=== PATIENT | female | born 1995 ===

== ENCOUNTER 2017-09-04 11:11 | Emergency (ER) | payer BC, MEDICAID ==
[2017-09-04 11:20] VITALS: BMI 19.7
[2017-09-04 11:24] VITALS: TEMP 97.8
--- NOTE | 2017-09-04 11:50 | ED PDOC ---
Arrival/HPI - General Chief Complaint: Female Genitourinary Time Seen by Provider: 09/04/17 11:23 Historian: Patient - History of Present Illness Narrative History of Present Illness (Text): 09/04/17 11:30 A 22 year old female, whose past medical history includes PCOS and RH, presents to the emergency department complaining of vaginal bleeding. Patient states she only noticed the bleeding today prior to arrival. Patient is currently 17 weeks and this is her first . Patient currently is taking penicillin and vitamins. Patient denies of any vaginal pain or any other complaints. COPY COORDINATOR: Dr. Padma Humphrey Time/Duration: Prior to Arrival Symptom Onset: Sudden Symptom Course: Unchanged Past Medical History - Provider Review Nursing Documentation Reviewed: Yes - Infectious Disease Hx of Infectious Diseases: None - Cardiac Hx Cardiac Disorders: Yes Other/Comment: RH - Pulmonary Hx Respiratory Disorders: No - Neurological Hx Neurological Disorder: No - HEENT Hx HEENT Disorder: No - Renal Hx Renal Disorder: No - Endocrine/Metabolic Hx Endocrine Disorders: No - Hematological/Oncological Hx Blood Disorders: No - Integumentary Hx Dermatological Disorder: No - Musculoskeletal/Rheumatological Hx Musculoskeletal Disorders: No - Gastrointestinal Hx Gastrointestinal Disorders: No - Genitourinary/Gynecological Hx Genitourinary Disorders: Yes Other/Comment: PCOS - Psychiatric Hx Psychophysiologic Disorder: No Hx Substance Use: No - Anesthesia Hx Anesthesia: No Family/Social History - Physician Review Nursing Documentation Reviewed: Yes Family/Social History: No Known Family HX Smoking Status: Never Smoked Hx Alcohol Use: Yes Frequency of alcohol use: Socially Hx Substance Use: No Allergies/Home Meds Allergies/Adverse Reactions: Allergies No Known Allergies Allergy (Verified 09/04/17 11:19) Home Medications: Home Meds Medication Instructions Recorded Confirmed Penicillin VK [Penicillin VK Tab] 250 mg PO BID 09/04/17 09/04/17 Vit No.126/Iron/Folic 1 tab PO DAILY 09/04/17 09/04/17 [Classic Tablet] Review of Systems - Physician Review All systems were reviewed & negative as marked: Yes - Review of Systems Gastrointestinal: absent: Abdominal Pain Genitourinary Female: Vaginal Bleeding. absent: Other (no vaginal pain) Physical Exam Vital Signs Reviewed: Yes Vital Signs Temp Pulse Resp BP Pulse Ox 09/04/17 14:15 119 H 17 125/80 99 09/04/17 13:11 115 H 18 127/80 99 09/04/17 11:23 97.8 F 117 H 18 128/82 98 Temperature: Afebrile Blood Pressure: Normal Pulse: Tachycardic Respiratory Rate: Normal Appearance: Positive for: Well-Appearing Pain Distress: None Mental Status: Positive for: Alert and Oriented X 3 - Systems Exam Head: Present: Atraumatic, Normocephalic Pupils: Present: PERRL Extroacular Muscles: Present: EOMI Conjunctiva: Present: Normal Mouth: Present: Moist Mucous Membranes Neck: Present: Normal Range of Motion Respiratory/Chest: Present: Clear to Auscultation, Good Air Exchange. No: Respiratory Distress, Accessory Muscle Use Cardiovascular: Present: Regular Rate and Rhythm, Normal S1, S2. No: Murmurs Abdomen: Present: Other (gravid) Back: Present: Normal Inspection Upper Extremity: Present: Normal Inspection. No: Cyanosis, Edema Lower Extremity: Present: Normal Inspection. No: Edema Neurological: Present: GCS=15, CN II-XII Intact, Speech Normal Skin: Present: Warm, Dry, Normal Color. No: Rashes Psychiatric: Present: Alert, Oriented x 3, Normal Insight, Normal Concentration Medical Decision Making ED Course and Treatment: r/o miscarriage, ectopic, 09/04/17 11:36 Impression: 22 year old female with vaginal bleeding. Physical exam shows abdomen gravid. Plan: -- Transvaginal Ultrasound -- Labs -- Urinalysis -- Reassess and disposition Progress Notes: 09/04/2017 13:41 Transvaginal Ultrasound FINDINGS: UTERUS: Gestational sac: Single live intrauterine fetus in variable presentation. Heart rate: 152 bpm. BPD: 35.8 mm corresponding to 17 weeks and 0 days of gestational age. HC: 140.9 mm corresponding to 17 weeks and 3 days of gestational age. AC: 115.0 mm corresponding to 17 weeks and 2 days of gestational age. FL: 24.0 mm corresponding to 17 weeks and 2 days of gestational age. age ( Ultrasound estimated): 17 weeks and 2 days Gracie-gestational hemorrhage: None. Date of delivery (Ultrasound estimated) : 02/10/2018 Placenta is posterior. CERVIX: Long and closed. No cervical abnormality seen. RIGHT OVARY: Measures 3.5 x 3.2 x 1.9 cm. No mass lesion. Normal flow. LEFT OVARY: Measures 3.8 x 3.6 x 2.4 cm. No solid mass. Normal flow. FREE FLUID: None. OTHER FINDINGS: None. IMPRESSION: Single live intrauterine fetus in variable presentation with mean gestational age of 17 weeks and 2 days. Placenta is posterior. The expected date of delivery by ultrasound is 02/10/2018. Please note this is at limited OB ultrasound performed in the emergency room and a follow-up dedicated anatomic survey is recommended. Dictator: Jeanna Trejo 09/04/17 15:23 abd sof tno ttp. iup confirmed. rh pos. ua neg. advise outpt f/u and return precautions - Lab Interpretations Lab Results: 09/04/17 11:55 09/04/17 11:55 Lab Results 09/04/17 13:00: Blood Type Confirm O POSITIVE 09/04/17 11:55: Blood Type O POSITIVE, Antibody Screen Negative, BBK History Checked No verified bt 09/04/17 11:55: Beta HCG, Quant 30000.00 H 09/04/17 11:55: Sodium 139, Potassium 4.0, Chloride 106, Carbon Dioxide 24, Anion Gap 13, BUN 7, Creatinine 0.4 L, Est GFR ( Amer) > 60, Est GFR (Non -Af Amer) > 60, Random Glucose 107, Calcium 10.0, Total Bilirubin 0.1 L, AST 20 , ALT 16, Alkaline Phosphatase 53, Total Protein 7.1, Albumin 3.9, Globulin 3.2 , Albumin/Globulin Ratio 1.2 09/04/17 11:55: PT 9.9, INR 0.92 L, APTT 27.4 09/04/17 11:55: WBC 11.3 H, RBC 3.70, Hgb 11.1 L, Hct 32.2 L, MCV 87.0, MCH 30.0 , MCHC 34.5, RDW 12.3, Plt Count 304, MPV 9.4, Gran % 88.5 H, Lymph % (Auto) 6.2 L, [place] % (Auto) 4.9, Eos % (Auto) 0.2 L, Baso % (Auto) 0.2, Gran # 10.00 H , Lymph # 0.7 L, Cache # 0.6, Eos # 0.0, Baso # 0.02 09/04/17 11:32: Urine Color Yellow, Urine Appearance Clear, Urine pH 7.5, Ur Specific [place] 1.010, Urine Protein Negative, Urine Glucose (UA) Negative, Urine Ketones Negative, Urine Blood Negative, Urine Nitrate Negative, Urine Bilirubin Negative, Urine Urobilinogen 0.2, Ur Leukocyte Esterase Negative, Urine HCG, Qual Positive I have reviewed the lab results: Yes - RAD Interpretation Radiology Orders: 09/04/17 11:32 AGE [US] Stat - Scribe Statement The provider has reviewed the documentation as recorded by the Dandy Rutledge Provider Scribe Attestation: All medical record entries made by the Scribe were at my direction and personally dictated by me. I have reviewed the chart and agree that the record accurately reflects my personal performance of the history, physical exam, medical decision making, and the department course for this patient. I have also personally directed, reviewed, and agree with the discharge instructions and disposition. Disposition/Present on Arrival - Present on Arrival Any Indicators Present on Arrival: No History of DVT/PE: No History of Uncontrolled Diabetes: No Urinary Catheter: No History of Decub. 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 Referrals: Aide Alvarado MD [Primary Care Provider] - Follow up with primary Forms: [facility] ([place])
[2017-09-04 12:12] LABS: BASO # 0.02 K/mm3 (0.0-2.0); BASO % 0.2 % (0.0-3.0); EOS % 0.2 % (1.5-5.0); GRAN % 88.5 % (50.0-68.0); HEMATOCRIT 32.2 % (36.0-48.0); LYMPH # 0.7 (1.2-3.4); LYMPH % 6.2 % (22.0-35.0); MEAN CORPUSCULAR HGB CONC 34.5 g/dl (31.0-37.0); MEAN PLATELET VOLUME 9.4 fl (7.0-11.0); MONO # 0.6 (0.1-0.6); MONO % 4.9 % (1.0-6.0); RED CELL DISTRIBUTION WIDTH 12.3 % (11.5-14.5); WHITE BLOOD COUNT 11.3 10^3/ul (4.5-11.0)
[2017-09-04 12:22] LABS: ALB/GLOB RATIO 1.2 (1.1-1.8); ALKALINE PHOSPHATASE 53 U/L (38-126); ALT/SGPT 16 U/L (7-56); AST/SGOT 20 U/L (14-36); BILIRUBIN,TOTAL 0.1 mg/dL (0.2-1.3); BLOOD UREA NITROGEN 7 mg/dL (7-21); CARBON DIOXIDE 24 mmol/L (21-33); CHLORIDE 106 mmol/L (98-107); GFR AFRICAN-AMERICAN > 60; GLUCOSE,RANDOM 107 mg/dL (70-110); INR 0.92 (0.93-1.08); PARTIAL THROMBOPLASTIN TIME 27.4 Seconds (23.7-30.8); SODIUM 139 mmol/L (132-148); TOTAL PROTEIN 7.1 g/dL (5.8-8.3)
[2017-09-04 13:10] LABS: PH,URINE 7.5 (4.7-8.0); URINE BILIRUBIN NEGATIVE (NEGATIVE); URINE BLOOD NEGATIVE (NEGATIVE); URINE GLUCOSE (UA) NEGATIVE (NEGATIVE); URINE KETONE NEGATIVE (NEGATIVE); URINE LEUKOCYTE ESTERASE NEGATIVE Leu/uL (NEGATIVE); URINE PROTEIN NEGATIVE mg/dL (<30 mg/dL); URINE UROBILINOGEN 0.2 E.U./dL (<1 E.U./dL)
[2017-09-04 13:11] LABS: URINE APPEARANCE CLEAR (CLEAR); URINE COLOR YELLOW (YELLOW)
--- NOTE | 2017-09-04 13:43 | US ---
PROCEDURE: OB Pelvic Ultrasound HISTORY: Abdominal pain and COMPARISON: None available. FINDINGS: UTERUS: Gestational sac: Single live intrauterine fetus in variable presentation. Heart rate: 152 bpm. BPD: 35.8 mm corresponding to 17 weeks and 0 days of gestational age. HC: 140.9 mm corresponding to 17 weeks and 3 days of gestational age. AC: 115.0 mm corresponding to 17 weeks and 2 days of gestational age. FL: 24.0 mm corresponding to 17 weeks and 2 days of gestational age. age (Ultrasound estimated): 17 weeks and 2 days Gracie-gestational hemorrhage: None. Date of delivery (Ultrasound estimated) : 02/10/2018 Placenta is posterior. CERVIX: Long and closed. No cervical abnormality seen. RIGHT OVARY: Measures 3.5 x 3.2 x 1.9 cm. No mass lesion. Normal flow. LEFT OVARY: Measures 3.8 x 3.6 x 2.4 cm. No solid mass. Normal flow. FREE FLUID: None. OTHER FINDINGS: None. IMPRESSION: Single live intrauterine fetus in variable presentation with mean gestational age of 17 weeks and 2 days. Placenta is posterior. The expected date of delivery by ultrasound is 02/10/2018. Please note this is at limited OB ultrasound performed in the emergency room and a follow-up dedicated anatomic survey is recommended.
[2017-09-04 14:15] VITALS: O2SAT 99
[2017-09-04 14:17] VITALS: BP 125/80; PULSE 119; RESP 17
== END 2017-09-04 14:16 | disposition home or self-care (01) ==
LOC: ED 11:11
DX: O20.0 Threatened abortion (principal); Z3A.17 17 weeks gestation of pregnancy